=== PATIENT | male | born 1955 | race Caucasian/White ===

== ENCOUNTER 2016-07-07 07:20 | Emergency (ER) | payer MEDICARE, MEDICAID ==
[2016-07-07] MEDS ORDERED: SODIUM CHLORIDE 0.9% IV ONE (14:20)
[2016-07-07] MEDS ORDERED: VALPROATE IV ONE (14:20)
== END 2016-07-07 16:48 | disposition home or self-care (01) ==
LOC: ER 07:20
DX: R56.9 Unspecified convulsions (principal)
CPT/HCPCS: 36415; 80053; 80165; 81001; 82550; 85025; 96365; 96366